=== PATIENT | female | born 1955 | race Caucasian/White ===

== ENCOUNTER 2017-04-26 00:20 | Emergency (ER) | payer OTHER ==
[2017-04-26 00:46] LABS: Bilirubin Negative (Negative); Blood, Urine Small (Negative); Glucose, Urine (Dipstick) Negative (Negative); Ketone, Urine Negative (Negative); Nitrite Negative (Negative); Protein, Urine (Dipstick) Negative (Neg-Trace); Urobilinogen 0.2 mg/dL (0.2-1.0)
[2017-04-26 00:49] LABS: Bacteria/HPF None Seen HPF (None Seen); Hyaline Casts/LPF 0-3 HYALINE CAST LPF (0-3 Hyaline); RBC/HPF 0-3 HPF (0-3); Squamous Epithelial None Seen HPF (0-3); WBC/HPF None Seen HPF (0-3)
[2017-04-26] MEDS ORDERED: Ketorolac Tromethamine 30 MG/ML VIAL ONE (00:58)
[2017-04-26 01:10] LABS: #Monocytes 0.5 thou/uL (0.11-0.59); #Neutrophils 6.5 thou/uL (1.40-6.50); %Basophils 0.1 % (0.0-1.0); %Eosinophils 0.4 % (0.0-10.0); %Monocytes 5.1 % (0.0-10.0); Hematocrit 41.6 % (36.0-47.0); Mean Platelet Volume 8.5 fL (7.4-10.4); Red Blood Cell (RBC) Count 4.44 mill/uL (4.20-5.40)
[2017-04-26 01:21] LABS: ALT (SGPT) 22 U/L (8-55); AST (SGOT) 21 U/L (5-34); Alkaline Phosphatase 84 U/L (40-150); Anion Gap 13 mmol/L (10-20); BUN (Urea Nitrogen) 23 mg/dL (9.8-20.1); Bilirubin, Total 0.4 mg/dL (0.2-1.2); Calc. Creatinine Clearance 0 mL/min (70-130); Calcium 9.3 mg/dL (7.8-10.44); Carbon Dioxide 24 mmol/L (23-31); Chloride 106 mmol/L (98-107); Estimated GFR-MDRD 41; Globulin 3.4 g/dL (2.4-3.5); Lipase 12 U/L (8-78); Protein, Total 7.3 g/dL (6.0-8.3)
--- NOTE | 2017-04-26 07:25 | CT ---
CT OF THE ABDOMEN AND PELVIS WITHOUT IV CONTRAST: INDICATION: Right-sided flank pain. FINDINGS: There is a 3.3 mm stone at the right UVJ causing mild right hydronephrosis. There is an additional 2 mm stone within the right mid kidney. There is a mily mesentery seen within the central mesenteric region which is nonspecific. There is a small hiatal hernia. There is a small subpleural pulmonary nodule within the right middl e lobe. Unopacified liver, spleen, pancreas, and adrenal glands are unremarkable. There is scattered divert icula involving the colon. The bladder, rectum, and perirectal soft tissues are unremarkable. There are scattered degenerative and osteoarthritic changes. IMPRESSION: 1. A 3.3 mm distal right ureteral calculus with mild right hydronephrosis. 2. Right nephrolithiasis. 3. Nonspecific mily mesentery within the central abdomen. Usually this is idiopathic and can be re lated to entity such as sclerosing mesenteritis. This also can be seen with history of pancreatitis . 4. Colonic diverticulosis. 5. Small hiatal hernia. POS: [facility]
== END 2017-04-26 03:26 | disposition home or self-care (01) ==
LOC: ERS 00:20
DX: N13.2 Hydronephrosis with renal and ureteral calculous obstruction (principal)
CPT/HCPCS: 74176; 80053; 81003; 81015; 83690; 85025; 96374; J1885